=== PATIENT | male | born 1945 | race Caucasian/White ===

== ENCOUNTER 2019-02-03 11:02 | Observation (INO) | payer MEDICARE, OTHER ==
[2019-02-03] MEDS ORDERED: Sodium Chloride 0.9% 10 ML Syringe FLUSH PRN (11:28)
[2019-02-03] MEDS ORDERED: Sodium Chloride 0.9% 1,000 ML IV ONE (11:29)
--- NOTE | 2019-02-03 11:52 | EDM.PDOC ---
ED HPI GENERAL MEDICAL PROBLEM - General Chief Complaint: Gastrointestinal Problem Stated Complaint: FROM [facility], [facility] Time Seen by Provider: 02/03/19 11:45 Source of Information: Reports: Patient History Limitations: Reports: No Limitations - History of Present Illness INITIAL COMMENTS - FREE TEXT/NARRATIVE: Bradley is a 74 year old male, presents to the ED today as directed by the primary care clinic for evaluation of diarrhea for the last 10 days. Patient denies any hematochezia, denies any abdominal pain. Patient has been nauseated but denies any vomiting. Patient has been staying hydrated but appetite is decreased secondary to the nausea. Patient denies any fever/chills/weakness/ lightheadedness/travel outside of the [place] or recent antibiotic use or sick contacts. Patient taking Imodium with minimal relief in his symptoms. Onset: Gradual Duration: Day(s): (10) Abdomen Pain Score (Numeric/FACES): 2 - Related Data Allergies Allergy/AdvReac Type Severity Reaction Status Date / Time No Known Allergies Allergy Verified 02/03/19 11:21 Home Meds: Home Meds Aloevera 1,000 mg PO DAILY 02/03/19 [History] Levothyroxine 25 mcg PO ACBREAKFAST 02/03/19 [History] Lisinopril 10 mg PO DAILY 02/03/19 [History] Loperamide HCl [Imodium A-D] 2 mg PO ASDIRECTED 02/03/19 [History] Ondansetron [Zofran ODT] 4 mg PO ASDIRECTED 02/03/19 [History] Past Medical History Cardiovascular History: Reports: High Cholesterol, Hypertension Respiratory History: Reports: Bronchitis, Recurrent Gastrointestinal History: Reports: Other (See Below) Other Gastrointestinal History: celiac disease. lymphocytic colitis Musculoskeletal History: Reports: Arthritis Endocrine/Metabolic History: Reports: Hypothyroidism - Past Surgical History Cardiovascular Surgical History: Reports: Carotid Endarterectomy GI Surgical History: Reports: Colonoscopy, EGD, Hernia Repair/Other, Polypectomy Social & Family History - Tobacco Use Smoking Status *Q: Former Smoker Used Tobacco, but Quit: Yes Month/Year Tobacco Last Used: may 2018 - Caffeine Use Caffeine Use: Reports: Coffee - Recreational Drug Use Recreational Drug Use: No ED ROS GENERAL - Review of Systems Review Of Systems: ROS reveals no pertinent complaints other than HPI. ED EXAM, GI/ABD - Physical Exam Exam: See Below Exam Limited By: No Limitations General Appearance: Alert, WD/WN, No Apparent Distress Eyes: Bilateral: EOMI Ears: Normal External Exam Nose: Normal Inspection Throat/Mouth: Normal Inspection, Normal Oropharynx Head: Atraumatic Neck: Normal Inspection, Supple, Non-Tender Respiratory/Chest: No Respiratory Distress, Lungs Clear Cardiovascular: Normal Peripheral Pulses, Regular Rate, Rhythm, No Murmur GI/Abdominal Exam: Normal Bowel Sounds, Soft, Non-Tender, No Organomegaly, No Distention, No Abnormal Bruit Back Exam: Normal Inspection, Full Range of Motion Extremities: Normal Inspection, Normal Range of Motion Neurological: Alert, Oriented, CN II-XII Intact Psychiatric: Normal Affect, Normal Mood Skin Exam: Warm, Dry, Intact, Pallor Lymphatic: No Adenopathy Course - Vital Signs Last Recorded V/S: Last Vital Signs Temp 36.3 C 02/03/19 11:18 Pulse 90 02/03/19 11:18 Resp 16 02/03/19 11:18 BP 143/73 H 02/03/19 11:18 Pulse Ox 100 02/03/19 11:18 Bradley is a healthy 74 year old male, hx of thyroid disease, presents to the ED today with a 10 day hx of diarrhea. Please refer to HPI and focused exam. Patient arrives here hemodynamically stable, afebrile, no abdominal tenderness on exam. Likely viral. Blood work obtained, white count normal, low lymphocytes. CMP with acute kidney injury, GAP of 15.4 with BUN of 29, creatinine of 2.1 and GFR of 31, sodium is mildly low at 132. Patient was given a liter of NS, stool sample obtained, C Diff and stool culture pending. I would like to bring patient in for observation admission for IV fluids, ensure adequate oral intake and that creatinine is improving. Last creatinine back in 2014 was 1. Patient agreeable, he did run home to grab a book. Patient discussed with Dr. Quintero, hospitalist, he has accepted patient for admission. Patient admitted in stable condition. - Orders/Labs/Meds Orders: Active Orders 24 hr Category Date Time Status Peripheral IV Care [RC] . DIRECTED Care 02/03/19 11:29 Active C Diff [CLOSTRIDIUM DIFFICILE BY PCR] [] Stat Lab 02/03/19 13:35 Ordered CULTURE STOOL + SHIGATOX [RM] Stat Lab 02/03/19 13:35 Ordered Sodium Chloride 0.9% [Saline Flush] Med 02/03/19 11:28 Active 10 ml FLUSH ASDIRECTED PRN Isolation [COMM] Stat Oth 02/03/19 11:30 Ordered Peripheral IV Insertion Adult [OM.PC] Routine Oth 02/03/19 11:28 Ordered Medication Orders Sodium Chloride (Saline Flush) 10 ml FLUSH ASDIRECTED PRN PRN Reason: Keep Vein Open Last Admin: 02/03/19 12:59 Dose: 10 ml Labs: Laboratory Tests 02/03/19 02/03/19 Range/Units 11:29 11:30 WBC 6.3 (4.5-11.0) K/uL RBC 4.61 (4.30-5.90) M/uL Hgb 13.8 (12.0-15.0) g/dL Hct 41.5 (40.0-54.0) % MCV 90 (80-98) fL MCH 30 (27-31) pg MCHC 33 (32-36) % Plt Count 311 (150-400) K/uL Neut % (Auto) 62 (36-66) % Lymph % (Auto) 20 L (24-44) % [place] % (Auto) 15 H (2-6) % Eos % (Auto) 2 (2-4) % Baso % (Auto) 1 (0-1) % Sodium 132 L (140-148) mmol/L Potassium 4.4 (3.6-5.2) mmol/L Chloride 100 (100-108) mmol/L Carbon Dioxide 21 (21-32) mmol/L Anion Gap 15.4 H (5.0-14.0) mmol/L BUN 29 H (7-18) mg/dL Creatinine 2.1 H (0.8-1.3) mg/dL Est Cr Clr Drug Dosing 30.31 mL/min Estimated GFR (MDRD) 31 L (>60) Glucose 107 H (74-106) mg/dL Calcium 8.7 (8.5-10.1) mg/dL Total Bilirubin 0.5 (0.2-1.0) mg/dL AST 25 (15-37) U/L ALT 33 (12-78) U/L Alkaline Phosphatase 36 L (46-116) U/L C-Reactive Protein 0.28 (0.0-0.3) mg/dL Total Protein 7.4 (6.4-8.2) g/dL Albumin 3.7 (3.4-5.0) g/dL Globulin 3.7 H (2.3-3.5) g/dL Albumin/Globulin Ratio 1.0 L (1.2-2.2) Lipase 94 (73-393) U/L Meds: Medications Generic Name Dose Route Start Last Admin Trade Name Freq PRN Reason Stop Dose Admin Sodium Chloride 10 ml 02/03/19 11:28 02/03/19 12:59 Saline Flush FLUSH 10 ml ASDIRECTED PRN Administration Keep Vein Open Discontinued Medications Generic Name Dose Route Start Last Admin Trade Name Freq PRN Reason Stop Dose Admin Sodium Chloride 1,000 mls @ 999 mls/hr 02/03/19 11:29 02/03/19 11:57 Normal Saline IV 02/03/19 12:29 999 mls/hr .BOLUS ONE Administration Departure - Departure Time of Disposition: 15:00 Disposition: Admitted As Inpatient 67 Condition: Fair Clinical Impression: Diarrhea, Acute kidney injury, Hyponatremia - Discharge Information Referrals: Monique Escobar MD [Primary Care Provider] - Forms: ED Department Discharge - My Orders Last 24 Hours: My Active Orders 02/03/19 11:28 Sodium Chloride 0.9% [Saline Flush] 10 ml FLUSH ASDIRECTED PRN Peripheral IV Insertion Adult [OM.PC] Routine 02/03/19 11:29 Peripheral IV Care [RC] . DIRECTED 02/03/19 11:30 Isolation [COMM] Stat 02/03/19 13:35 C Diff [CLOSTRIDIUM DIFFICILE BY PCR] [RM] Stat CULTURE STOOL + SHIGATOX [RM] Stat - Assessment/Plan Last 24 Hours: My Active Orders 02/03/19 11:28 Sodium Chloride 0.9% [Saline Flush] 10 ml FLUSH ASDIRECTED PRN Peripheral IV Insertion Adult [OM.PC] Routine 02/03/19 11:29 Peripheral IV Care [RC] . DIRECTED 02/03/19 11:30 Isolation [COMM] Stat 02/03/19 13:35 C Diff [CLOSTRIDIUM DIFFICILE BY PCR] [RM] Stat CULTURE STOOL + SHIGATOX [RM] Stat
--- NOTE | 2019-02-03 16:26 | PCM.HP.2 ---
H&P History of Present Illness - General Date of Service: 02/03/19 Admit Problem/Dx: Admission Diagnosis/Problem Admission Diagnosis/Problem Acute kidney injury Source of Information: Patient, Provider History Limitations: Reports: No Limitations - History of Present Illness Initial Comments - Free Text/Narative: CC: I've had diarrhea for 10 days HPI: Matthieu presents to the emergency room today with 10 days of watery diarrhea. He describes proximally 10 watery bowel movements per day which can happen during the day and do wake him up at night. He thinks he may have had some subjective fevers early on but has not had in the last several days. Diarrhea seems to be a little worse when he tries to eat something but does persist even when he is fasting. He has some very mild achy lower abdominal pain that comes and goes but is not associated with the diarrhea. He has been trying Imodium without any improvement in the diarrhea. 2 days before the symptoms he got sick after eating a cheeseburger at a local caf with nausea and upset stomach but the symptoms resolved 1-1/2-2 days prior to the development of diarrhea. He does not have any sick contacts. He has not traveled anywhere. He has not had any suspect ingestions or river or matute water consumption. Workup in the emergency room revealed a creatinine of 2 with a baseline of 1. His vitals are stable. Clostridium difficile is negative. Fecal leukocytes are negative. He will be admitted for hydration and repeat laboratory studies. Abdomen Pain Score (Numeric/FACES): 2 - Related Data Allergies/Adverse Reactions: Allergies Allergy/AdvReac Type Severity Reaction Status Date / Time No Known Allergies Allergy Verified 02/03/19 11:21 Home Medications: Home Meds Aloevera 1,000 mg PO DAILY 02/03/19 [History] Levothyroxine 25 mcg PO ACBREAKFAST 02/03/19 [History] Lisinopril 10 mg PO DAILY 02/03/19 [History] Loperamide HCl [Imodium A-D] 2 mg PO ASDIRECTED 02/03/19 [History] Ondansetron [Zofran ODT] 4 mg PO ASDIRECTED 02/03/19 [History] Past Medical History Cardiovascular History: Reports: High Cholesterol, Hypertension Respiratory History: Reports: Bronchitis, Recurrent Gastrointestinal History: Reports: Other (See Below) Other Gastrointestinal History: celiac disease. lymphocytic colitis Musculoskeletal History: Reports: Arthritis Endocrine/Metabolic History: Reports: Hypothyroidism - Past Surgical History Cardiovascular Surgical History: Reports: Carotid Endarterectomy GI Surgical History: Reports: Colonoscopy, EGD, Hernia Repair/Other, Polypectomy Social & Family History - Family History Cardiac: Denies: CAD - Tobacco Use Smoking Status *Q: Former Smoker Used Tobacco, but Quit: Yes Month/Year Tobacco Last Used: may 2018 - Caffeine Use Caffeine Use: Reports: Coffee - Alcohol Use Alcohol Use History: No - Recreational Drug Use Recreational Drug Use: No H&P Review of Systems - Review of Systems: Review Of Systems: See Below Free Text/Narrative: A complete 12 point review of systems was obtained. Pertinent positives and negatives are noted in the history of present illness. All other systems were reviewed and were negative except as noted. Exam - Exam Exam: See Below - Vital Signs Vital Signs: Last Vital Signs Temp 36.3 C 02/03/19 11:18 Pulse 90 02/03/19 11:18 Resp 16 02/03/19 11:18 BP 143/73 H 02/03/19 11:18 Pulse Ox 100 02/03/19 11:18 Weight: 73.4 kg - Exam Quality Assessment: No: Supplemental Oxygen General: Alert, Oriented, Cooperative. No: Mild Distress HEENT: Conjunctiva Clear. No: Mucosa Moist & [place] (dry), Scleral Icterus Neck: Supple, Trachea Midline Lungs: Clear to Auscultation, Normal Respiratory Effort Cardiovascular: Regular Rate, Regular Rhythm GI/Abdominal Exam: Normal Bowel Sounds, Soft, Non-Tender, No Distention, No Mass Extremities: No Pedal Edema. No: Increased Warmth Peripheral Pulses: 2+: Dorsalis Pedis (L), Dorsalis Pedis (R) Skin: Warm, Dry Neuro Extensive - Mental Status: Alert, Oriented x3, Nl Response to Commands Neuro Extensive - Motor, Sensory, Reflexes: No: Dysarthria, Abnormal Motor, Tremor Psychiatric: Alert, Normal Affect - Patient Data Lab Results Last 24 hrs: Laboratory Results - last 24 hr 02/03/19 02/03/19 Range/Units 11:29 11:30 WBC 6.3 (4.5-11.0) K/uL RBC 4.61 (4.30-5.90) M/uL Hgb 13.8 (12.0-15.0) g/dL Hct 41.5 (40.0-54.0) % MCV 90 (80-98) fL MCH 30 (27-31) pg MCHC 33 (32-36) % Plt Count 311 (150-400) K/uL Neut % (Auto) 62 (36-66) % Lymph % (Auto) 20 L (24-44) % [place] % (Auto) 15 H (2-6) % Eos % (Auto) 2 (2-4) % Baso % (Auto) 1 (0-1) % Sodium 132 L (140-148) mmol/L Potassium 4.4 (3.6-5.2) mmol/L Chloride 100 (100-108) mmol/L Carbon Dioxide 21 (21-32) mmol/L Anion Gap 15.4 H (5.0-14.0) mmol/L BUN 29 H (7-18) mg/dL Creatinine 2.1 H (0.8-1.3) mg/dL Est Cr Clr Drug Dosing 30.31 mL/min Estimated GFR (MDRD) 31 L (>60) Glucose 107 H (74-106) mg/dL Calcium 8.7 (8.5-10.1) mg/dL Total Bilirubin 0.5 (0.2-1.0) mg/dL AST 25 (15-37) U/L ALT 33 (12-78) U/L Alkaline Phosphatase 36 L (46-116) U/L C-Reactive Protein 0.28 (0.0-0.3) mg/dL Total Protein 7.4 (6.4-8.2) g/dL Albumin 3.7 (3.4-5.0) g/dL Globulin 3.7 H (2.3-3.5) g/dL Albumin/Globulin Ratio 1.0 L (1.2-2.2) Lipase 94 (73-393) U/L Result Diagrams: 02/03/19 11:29 02/03/19 11:30 Adam Results Last 24 hrs: Microbiology 02/03/19 13:35 Clostridioides difficile (PCR) - Final Stool / Feces NEGATIVE CDIFF TOXIN *Q Meaningful Use (ADM) - VTE Risk Assess *Q Each Risk Factor Represents 1 Point: None Total Score 1 Point Risk Factors: 0 Each Risk Factor Represents 2 Points: Age 60 - 74 Years Total Score 2 Point Risk Factors: 2 Each Risk Factor Represents 3 Points: None Total Score 3 Point Risk Factors: 0 Each Risk Factor Represents 5 Points: None Total Score 5 Point Risk Factors: 0 Venous Thromboembolism Risk Factor Score *Q: 2 - Problem List (1) Diarrhea SNOMED Code(s): 02647462 ICD Code: R19.7 - DIARRHEA, UNSPECIFIED Status: Acute Current Visit: Yes (2) Acute kidney injury SNOMED Code(s): 92356207, 71557078 ICD Code: N17.9 - ACUTE KIDNEY FAILURE, UNSPECIFIED Status: Acute Current Visit: Yes (3) Hyponatremia SNOMED Code(s): 50034283 ICD Code: E87.1 - HYPO-OSMOLALITY AND HYPONATREMIA Status: Acute Current Visit: Yes Problem List Initiated/Reviewed/Updated: Yes Orders Last 24hrs: Active Orders 24 hr Category Date Time Status Patient Status Manage Transfer [TRANSFER] Routine ADT 02/03/19 16:19 Ordered Peripheral IV Care [RC] . DIRECTED Care 02/03/19 11:29 Active C Diff [CLOSTRIDIUM DIFFICILE BY PCR] [RM] Stat Lab 02/03/19 13:35 Results CULTURE STOOL + SHIGATOX [RM] Stat Lab 02/03/19 13:35 Results WBC, STOOL [OP] Stat Lab 02/03/19 16:18 Ordered Sodium Chloride 0.9% [Normal Saline] 1,000 ml Med 02/03/19 16:30 Active IV ASDIRECTED Sodium Chloride 0.9% [Saline Flush] Med 02/03/19 11:28 Active 10 ml FLUSH ASDIRECTED PRN Isolation [COMM] Stat Oth 02/03/19 11:30 Ordered Peripheral IV Insertion Adult [OM.PC] Routine Oth 02/03/19 11:28 Ordered Resuscitation Status Routine Resus Stat 02/03/19 16:21 Ordered Medication Orders Sodium Chloride (Normal Saline) 1,000 mls @ 125 mls/hr IV ASDIRECTED MARLO Sodium Chloride (Saline Flush) 10 ml FLUSH ASDIRECTED PRN PRN Reason: Keep Vein Open Last Admin: 02/03/19 12:59 Dose: 10 ml Assessment/Plan Comment:: ASSESSMENT AND PLAN - Acute diarrhea - may have been a viral with persistent symptoms and persistent dehydration. White count is normal. CRP is normal. Vitals are stable. He is dehydrated with a doubling of his creatinine from baseline. Clostridium difficile was negative. There are no fecal leukocytes present. Stool culture is pending. No suspect ingestions or travel. -IV fluids overnight -Imodium as needed -Follow-up stool culture Acute kidney injury - creatinine is down to what his normal level is. Suspect dehydration from diarrhea and I would anticipate level should improve or normalize overnight. -IV fluids overnight and repeat labs in the morning Maintenance issues - - DVT prophylaxis - patient will be ambulatory - GI prophylaxis - not indicated - Nutrition - regular diet as tolerated - Truong catheter - not indicated CODE STATUS - full code Admission justification - patient will be referred observation status for hydration and repeat laboratory studies Disposition - I would anticipate discharge home after the hospital stay Primary care physician - Dr Catrachita Quintero M.D. - Mortality Measure Prognosis:: Good
[2019-02-03] MEDS ORDERED: Ondansetron 4 MG/2 ML SDV IV PRN (17:13)
[2019-02-03] MEDS ORDERED: Loperamide 2 MG Cap PO ONE (17:13)
[2019-02-03] MEDS ORDERED: Ondansetron 4 MG Tab.DIS PO PRN (17:13)
[2019-02-03] MEDS ORDERED: LORazepam 2 MG/ML SDV IVPUSH PRN (17:13)
[2019-02-03] MEDS ORDERED: Acetaminophen 325 MG Tab PO PRN (17:13)
[2019-02-03] MEDS ORDERED: Loperamide 2 MG Cap PO PRN (17:13)
[2019-02-03] MEDS: Sodium Chloride 0.9% 1,000 ML IV SCH (17:25)
[2019-02-04] MEDS: Sodium Chloride 0.9% 1,000 ML IV SCH (01:04)
[2019-02-04] MEDS ORDERED: Levothyroxine 25 MCG Tab PO SCH (07:30)
[2019-02-04] MEDS ORDERED: Lisinopril 10 MG Tab PO SCH (09:00)
--- NOTE | 2019-02-04 10:24 | PCM.DCSUM1 ---
Discharge Summary - Hospital Course Brief History: 74-year-old male who presented with 10 days of diarrhea. He was admitted for observation and management of acute kidney injury secondary to diarrhea. Diagnosis: Stroke: No - Discharge Data Discharge Date: 02/04/19 Discharge Disposition: Home, Self-Care 01 Condition: Good - Referral to Home Health Primary Care Physician: Monique Escobar MD - Discharge Diagnosis/Problem(s) (1) Diarrhea SNOMED Code(s): 06555579 ICD Code: R19.7 - DIARRHEA, UNSPECIFIED Status: Acute (2) Acute kidney injury SNOMED Code(s): 20426561, 45109565 ICD Code: N17.9 - ACUTE KIDNEY FAILURE, UNSPECIFIED Status: Acute (3) Hyponatremia SNOMED Code(s): 06782959 ICD Code: E87.1 - HYPO-OSMOLALITY AND HYPONATREMIA Status: Acute - Patient Summary/Data Hospital Course: Matthieu presented to the emergency room with 10 days of diarrhea. Workup in the emergency room revealed a creatinine of 2 with a baseline of 1. Stool studies were obtained at the time of presentation but were pending at the time of admission. He was started on IV fluids to help manage the acute kidney injury which was thought secondary to dehydration after significant diarrhea. His white count was normal and he did not have any fevers. Clostridium difficile testing was negative. Fecal leukocytes were unremarkable. Stool studies for Escherichia coli and other enteric pathogens were negative. He received IV fluids overnight and by the morning of discharge his diarrhea had essentially resolved. He has not had any abdominal pain. I suspect he had a viral infection with prolonged diarrhea secondary to dehydration. His creatinine is now down to 1.5. He feels well and has tolerated a regular diet. - Patient Instructions Diet: Regular Diet as Tolerated Activity: As Tolerated Driving: May Drive Today Showering/Bathing: May Shower Notify Provider of: Fever, Increased Pain, Nausea and/or Vomiting - Discharge Plan *PRESCRIPTION DRUG MONITORING PROGRAM REVIEWED*: Not Applicable *COPY OF PRESCRIPTION DRUG MONITORING REPORT IN PATIENT MARILEE: Not Applicable Home Medications: Home Meds Aloevera 1,000 mg PO DAILY 02/03/19 [History] Levothyroxine 25 mcg PO ACBREAKFAST 02/03/19 [History] Lisinopril 10 mg PO DAILY 02/03/19 [History] Loperamide HCl [Imodium A-D] 2 mg PO ASDIRECTED 02/03/19 [History] Ondansetron [Zofran ODT] 4 mg PO ASDIRECTED 02/03/19 [History] Oxygen Therapy Mode: Room Air Patient Handouts: Food Choices to Help Relieve Diarrhea, Adult Referrals: Monique Escobar MD [Primary Care Provider] - (f/u as needed if diarrhea returns) - Discharge Summary/Plan Comment DC Time >30 min.: No - Patient Data Vitals - Most Recent: Last Vital Signs Temp 35.6 C 02/04/19 07:42 Pulse 65 02/04/19 07:42 Resp 16 02/04/19 07:42 BP 109/56 L 02/04/19 07:42 Pulse Ox 100 02/04/19 07:42 Weight - Most Recent: 73.4 kg I&O - Last 24 hours: Intake & Output 02/03/19 02/04/19 02/04/19 22:59 06:59 14:59 Intake Total 120 1764 Balance 120 1764 Lab Results - Last 24 hrs: Laboratory Results - last 24 hr 02/03/19 02/03/19 02/04/19 Range/Units 11:29 11:30 05:40 WBC 6.3 7.0 (4.5-11.0) K/uL RBC 4.61 3.82 L (4.30-5.90) M/uL Hgb 13.8 11.3 L D (12.0-15.0) g/dL Hct 41.5 35.1 L (40.0-54.0) % MCV 90 92 (80-98) fL MCH 30 30 (27-31) pg MCHC 33 32 (32-36) % Plt Count 311 264 (150-400) K/uL Neut % (Auto) 62 (36-66) % Lymph % (Auto) 20 L (24-44) % [place] % (Auto) 15 H (2-6) % Eos % (Auto) 2 (2-4) % Baso % (Auto) 1 (0-1) % Sodium 132 L (140-148) mmol/L Potassium 4.4 (3.6-5.2) mmol/L Chloride 100 (100-108) mmol/L Carbon Dioxide 21 (21-32) mmol/L Anion Gap 15.4 H (5.0-14.0) mmol/L BUN 29 H (7-18) mg/dL Creatinine 2.1 H (0.8-1.3) mg/dL Est Cr Clr Drug Dosing 30.31 mL/min Estimated GFR (MDRD) 31 L (>60) Glucose 107 H (74-106) mg/dL Calcium 8.7 (8.5-10.1) mg/dL Total Bilirubin 0.5 (0.2-1.0) mg/dL AST 25 (15-37) U/L ALT 33 (12-78) U/L Alkaline Phosphatase 36 L (46-116) U/L C-Reactive Protein 0.28 (0.0-0.3) mg/dL Total Protein 7.4 (6.4-8.2) g/dL Albumin 3.7 (3.4-5.0) g/dL Globulin 3.7 H (2.3-3.5) g/dL Albumin/Globulin Ratio 1.0 L (1.2-2.2) Lipase 94 (73-393) U/L 02/04/19 Range/Units 05:40 WBC (4.5-11.0) K/uL RBC (4.30-5.90) M/uL Hgb (12.0-15.0) g/dL Hct (40.0-54.0) % MCV (80-98) fL MCH (27-31) pg MCHC (32-36) % Plt Count (150-400) K/uL Neut % (Auto) (36-66) % Lymph % (Auto) (24-44) % [place] % (Auto) (2-6) % Eos % (Auto) (2-4) % Baso % (Auto) (0-1) % Sodium 139 L (140-148) mmol/L Potassium 4.6 (3.6-5.2) mmol/L Chloride 109 H (100-108) mmol/L Carbon Dioxide 22 (21-32) mmol/L Anion Gap 12.6 (5.0-14.0) mmol/L BUN 22 H (7-18) mg/dL Creatinine 1.5 H (0.8-1.3) mg/dL Est Cr Clr Drug Dosing 43.86 mL/min Estimated GFR (MDRD) 46 L (>60) Glucose 84 (74-106) mg/dL Calcium 8.2 L (8.5-10.1) mg/dL Total Bilirubin (0.2-1.0) mg/dL AST (15-37) U/L ALT (12-78) U/L Alkaline Phosphatase (46-116) U/L C-Reactive Protein (0.0-0.3) mg/dL Total Protein (6.4-8.2) g/dL Albumin (3.4-5.0) g/dL Globulin (2.3-3.5) g/dL Albumin/Globulin Ratio (1.2-2.2) Lipase (73-393) U/L SOL Results - Last 24 hrs: Microbiology 02/03/19 13:35 Stool Culture - Preliminary Stool / Feces NORMAL ENTERIC JEANE 1 DAY Shiga Toxin I - Final NEGATIVE FOR SHIGA TOXIN 1 Shiga Toxin II - Final NEGATIVE FOR SHIGA TOXIN 2 REFERENCE RANGE: NEGATIVE Clostridioides difficile (PCR) - Final NEGATIVE CDIFF TOXIN 02/03/19 16:18 Stool for WBCs - Final Stool / Feces NO WBC SEEN REFERENCE RANGE: NO WBC SEEN Med Orders - Current: Current Medications Acetaminophen (Tylenol) 650 mg PO Q4H PRN PRN Reason: Pain (Mild 1-3)/fever Sodium Chloride (Normal Saline) 1,000 mls @ 125 mls/hr IV ASDIRECTED [facility] Last Admin: 02/04/19 01:04 Dose: 125 mls/hr Levothyroxine Sodium (Levothyroxine) 25 mcg PO ACBREAKFAST [facility] Lisinopril (Prinivil) 10 mg PO DAILY [facility] Loperamide HCl (Imodium) 2 mg PO Q4H PRN PRN Reason: Diarrhea Lorazepam (Ativan) 0.5 mg IVPUSH Q4H PRN PRN Reason: Nausea/Vomiting Ondansetron HCl (Zofran Odt) 4 mg PO Q6H PRN PRN Reason: Nausea able to take PO Ondansetron HCl (Zofran) 4 mg IV Q6H PRN PRN Reason: Nausea/Vomiting Sodium Chloride (Saline Flush) 10 ml FLUSH ASDIRECTED PRN PRN Reason: Keep Vein Open Last Admin: 02/03/19 12:59 Dose: 10 ml Discontinued Medications Sodium Chloride (Normal Saline) 1,000 mls @ 999 mls/hr IV .BOLUS ONE Stop: 02/03/19 12:29 Last Admin: 02/03/19 11:57 Dose: 999 mls/hr Loperamide HCl (Imodium) 4 mg PO ONETIME ONE Stop: 02/03/19 17:14 Last Admin: 02/03/19 23:20 Dose: 4 mg - Exam Quality Assessment: Denies: Supplemental Oxygen General: Reports: Alert, Oriented, Cooperative, No Acute Distress Lungs: Reports: Normal Respiratory Effort GI/Abdominal Exam: Soft, No Distention Extremities: No Pedal Edema Psy/Mental Status: Reports: Alert, Normal Affect
== END 2019-02-04 10:50 | disposition home or self-care (01) ==
LOC: JP.ED 11:02 → JP.MS 16:19
PROVIDERS: ADMIT Internal Medicine; ATTEND Internal Medicine
DX: N17.9 Acute kidney failure, unspecified (principal); R19.7 Diarrhea, unspecified; E87.1 Hypo-osmolality and hyponatremia; E86.0 Dehydration; I10 Essential (primary) hypertension; E03.9 Hypothyroidism, unspecified; Z87.891 Personal history of nicotine dependence; Z79.899 Other long term (current) drug therapy
CPT/HCPCS: 36415; 80048; 80053; 83690; 85025; 85027; 86140; 87046; 87493; 87899; 89055; 96360; 99284; A9270; J7030; 96361; G0378

== ENCOUNTER 2019-03-02 08:05 | Day surgery (SDC) | payer OTHER ==
[2019-03-02] MEDS: Lactated Ringers 1,000 ML IV SCH (08:56)
[2019-03-02] MEDS ORDERED: fentaNYL 100 MCG/2 ML SDV ONE (09:15)
[2019-03-02] MEDS ORDERED: Propofol 200 MG/20 ML SDV ONE (09:15)
[2019-03-02] MEDS ORDERED: Midazolam 1 MG/ML 2 ML SDV ONE (09:15)
--- NOTE | 2019-03-02 17:17 | OR ---
DATE OF PROCEDURE: 03/02/2019 SURGEON: Kamron Ponce MD PREOPERATIVE DIAGNOSES: Diarrhea and history of lymphocytic colitis. POSTOPERATIVE DIAGNOSES: Diarrhea and history of lymphocytic colitis. PROCEDURE: Colonoscopy to the cecum with random colon biopsies. ANESTHESIA: IV anesthesia with monitored anesthesia care. INDICATION: This 74-year-old white male is referred for a colonoscopy because of diarrhea. He says his last colonoscopic exam was done 3 or 4 years ago. We did find some hyperplastic polyps back then also and he had biopsies in the past that have shown lymphocytic colitis. I counseled him for the colonoscopy with possible biopsy and/or polypectomy, including risks and alternatives, and he gave his informed consent to proceed. DESCRIPTION OF PROCEDURE: The patient was placed in the left lateral decubitus position. IV anesthesia was administered by the Anesthesia Service. Time-out was held. A rectal exam was performed, which was unremarkable. The flexible video Olympus colonoscope was introduced through his anus, up his rectum, and out his colon all the way to the cecum. Once the cecum was reached, the scope was slowly withdrawn examining the mucosa throughout. No mucosal abnormalities were noted. We did obtain random colonic biopsies throughout the entire colon. The scope was retroflexed in the rectum with the distal rectum appearing unremarkable. The scope was straightened and removed. He tolerated the procedure well. Kamron Ponce MD /[id number]
== END 2019-03-02 12:15 | disposition home or self-care (01) ==
LOC: JP.SDS 08:05
PROVIDERS: ATTEND Surgery
DX: K52.831 Collagenous colitis (principal); K90.0 Celiac disease; E03.9 Hypothyroidism, unspecified; Z91.018 Allergy to other foods; Z86.010 Personal history of colon polyps
CPT/HCPCS: 45380; J2250; J2704; J3010; J7120